=== PATIENT | female | born 1980 | race Caucasian/White ===

== ENCOUNTER → 2021-05-06 12:43 | Outpatient (CLI) | payer OTHER, SELFPAY ==
--- NOTE | 2021-05-06 12:44 | DI.US.S_ITS ---
PROCEDURE: US PELVIC COMPLETE INDICATIONS: VAGINAL MASS TECHNIQUE: Real-time scanning was performed of the pelvic organs, with image documentation. Additional endovaginal scanning was necessary due to incomplete visualization of the adnexal and endometrial structures by transabdominal scanning. COMPARISON: None. FINDINGS: Uterus: Uterus is anteverted and normal in size at 11.3 x 5.1 x 6.3 cm. The myometrium is heterogeneous. The endometrium measures 22.6 mm combined thickness. Anterior intramural fibroid measuring 4.4 x 3.6 x 4.0 cm. Cystic mass seen within the vagina measuring 1.7 x 1.8 x 1.2 cm. Ovaries: The right ovary is surgically absent. Left ovary measures 3.5 x 2.0 x 2.5 cm. Other: No pathologic free abdominal or pelvic fluid. IMPRESSION: 1. Vaginal cyst measuring up to 1.8 cm. 2. Thickened endometrial complex measuring 22.6 mm. Short-term follow-up pelvic ultrasound in 6 weeks is recommended to assess for interval thinning. 3. 4.4 cm intramural fibroid. We strive to produce accurate, complete, and clear reports of imaging services. To assist us in improving patient care, this report was composed using standard report templates and voice recognition software. Therefore, it may contain abnormal punctuation, insertions and/or omissions. Occasional wrong-word or sound-alike substitutions may occur. Though we review the report and make efforts to correct it, we do recommend that the report be read carefully in proper context to recognize any text inaccuracies. Dictated by: Josse GUEVARA Interpreted: Sugey Contreras MD on 05/06/2021 at 13:18 Transcribed by: ALEXANDRA on 05/06/2021 at 13:21 Approved by: Sugey Contreras M.D. on 05/06/2021 at 17:48
== END ==
PROVIDERS: PCP Registered Nurse Women's Health Care, Ambulatory; Referring Provider Student in an Organized Health Care Education/Training Program; Visit Provider Student in an Organized Health Care Education/Training Program
DX: N89.8 Other specified noninflammatory disorders of vagina (principal); R93.89 Abnormal findings on diagnostic imaging of other specified body structures; D25.1 Intramural leiomyoma of uterus
CPT/HCPCS: 76830; 76856

== ENCOUNTER 2022-03-18 12:50 | Emergency (ER) | payer OTHER, SELFPAY ==
[2022-03-18 13:04] VITALS: BP 166/80; PULSE 76; RESP 18; TEMP 36.5; O2SAT 98; BMI 41.8
[2022-03-18 14:23] LABS: Add Manual Diff / Slide Review NO; Basophils Absolute Auto 100 /uL (0-100); Basophils Percent Auto 0.7 % (0-2); Eosinophils Absolute Auto 300 /uL (0-450); Eosinophils Percent Auto 3.1 % (2-4); Hematocrit 41.6 % (36-46); Hemoglobin 14.3 g/dL (12.0-16.0); Lymphocytes Absolute Auto 2000 /uL (1100-4500); Lymphocytes Percent Auto 20.4 % (25-40); Mean Corpuscular HGB Conc 34.3 % (30-36); Mean Corpuscular Hemoglobin 28.5 PG (26-34); Mean Corpuscular Volume 83.1 fL (80-100); Monocytes Absolute Auto 500 /uL (0-900); Monocytes Percent Auto 4.9 % (3-14); Neutrophils Absolute Auto 6800 /uL (1500-7000); Neutrophils Percent Auto 70.9 % (50-75); Platelet Count 255 X10^3/uL (150-400); Red Blood Cell Count 5.01 X10^6/uL (4.0-5.2); Red Cell Distribution Width 13.8 % (11.6-14.8); White Blood Cell Count 9.6 X10^3/uL (4.5-11.0)
[2022-03-18 14:36] LABS: Blood Urea Nitrogen 12 mg/dL (7-17); Calcium 9.1 mg/dL (8.4-10.2); Carbon Dioxide 22 mmol/L (22-32); Chloride 106 mmol/L (98-107); Estimated Glomerular Filt Rate > 60 mL/min (>60); Glucose 95 mg/dL (70-100); HEMOLYSIS 29 (0-50); Potassium 4.3 mmol/L (3.4-5.1); Sodium 139 mmol/L (137-145)
[2022-03-18 16:05] VITALS: BP 139/83; PULSE 73; RESP 19; O2SAT 97
[2022-03-18 16:30] VITALS: PULSE 73; RESP 18; O2SAT 98
[2022-03-18 16:31] VITALS: BP 141/80; PULSE 75; O2SAT 97
--- NOTE | 2022-03-18 16:32 | ED_ITS ---
HPI - General Adult General Chief complaint: Hypertension Stated complaint: BP 180/108 dizziness t-1 Time Seen by Provider: 03/18/22 16:22 Source: patient Mode of arrival: Ambulatory History of Present Illness HPI narrative: Patient is a 41-year-old female who stated that she woke up in the middle the night feeling very lightheaded. It was not a room spinning sensation but more of just an unsteadiness. She had no chest pain. No shortness of breath. She does have some sinus congestion. Her symptoms have greatly improved if not res olved at the time of my exam. She took her blood pressure and it was elevated. She has been off of her blood pressure medicines for the past couple days. She did call to have a refill but does not have those yet. No lower extremity swelling. No tingling in the upper extremities. Related Data Home Medications Medication Instructions Recorded Confirmed VITAMIN D (Vitamin D3) 1,000 unit PO QDAY ##0 01/22/11 10/28/21 loratadine 10 mg tablet (Claritin) 10 mg PO QDAYP PRN ##0 10/03/16 10/28/21 multivitamin PO 06/08/21 10/28/21 Allergies Allergy/AdvReac Type Severity Reaction Status Date / Time No Known Drug Allergies Allergy Verified 03/18/22 13:04 Review of Systems Constitutional Constitutional: Reports system reviewed and no additional complaints, except as documented ENT Ears, Nose, Mouth, and Throat: Reports system reviewed and no additional comp laints, except as documented Cardiovascular Cardiovascular: Reports system reviewed and no additional complaints, except as documented Respiratory Respiratory: Reports system reviewed and no additional complaints, except as documented Integumentary/Breasts Skin/Breast: Reports system reviewed and no additional complaints, except as documented Neurologic Neurologic: Reports system reviewed and no additional complaints, except as documented Hematologic/Lymphatic On Anticoagulants: No Patient History Medical History HTN (hypertension) Vaginal delivery Wears contact lenses Surgical History Anesthesia Tubal (~1999) Social History Smoking Status: Former smoker Smoking Status: Former smoker alcohol intake frequency: holidays/special occasions only Substance Use Type: marijuana Exam Initial Vital Signs Initial Vital Signs: Vital Signs Temperature 97.7 F 03/18/22 13:04 Pulse Rate 76 03/18/22 13:04 Respiratory Rate 18 03/18/22 13:04 Blood Pressure 166/80 H 03/18/22 13:04 Pulse Oximetry 98 03/18/22 13:04 Oxygen Delivery Method 03/18/22 13:04 Const General: cooperative and healthy appearing HENMT Ears: TM's normal bilaterally Resp Effort & Inspection: normal respiratory effort Auscultation: clear to auscultation bilaterally Cardio Rate: regular rate Rhythm: regular rhythm Neuro General: patient alert, patient awake, patient oriented x3 and moves all extremities Speech: speech normal Gait: normal gait Extrem General: normal to inspection and capillary refill normal Course Orders Ordered: ED Orders 03/18/22 14:12 Basic Metabolic Panel Stat Complete Blood Count AUTO DIFF Stat 03/18/22 14:19 EKG-12 Lead Stat Vital Signs Vital signs: Vital Signs - 8 hr 03/18/22 13:04 03/18/22 16:05 03/18/22 16:05 Temperature 97.7 F Pulse Rate 76 73 Respiratory Rate 18 19 Blood Pressure 166/80 H 139/83 Pulse Oximetry 98 97 Oxygen Delivery Method Room Air Room Air 03/18/22 16:30 03/18/22 16:31 03/18/22 16:31 Temperature Pulse Rate 73 75 Respiratory Rate 18 Blood Pressure 141/80 H Pulse Oximetry 98 97 Oxygen Delivery Method Room Air Medical Decision Making Lab Data Result diagrams: 03/18/22 14:12 03/18/22 14:12 Labs: Lab Results 03/18/22 03/18/22 Range/Units 14:12 14:12 WBC 9.6 (4.5-11.0) X10^3/uL RBC 5.01 (4.0-5.2) X10^6/uL Hgb 14.3 (12.0-16.0) g/dL Hct 41.6 (36-46) % MCV 83.1 (80-100) fL MCH 28.5 (26-34) PG MCHC 34.3 (30-36) % RDW 13.8 (11.6-14.8) % Plt Count 255 (150-400) X10^3/uL Neut % (Auto) 70.9 (50-75) % Lymph % (Auto) 20.4 L (25-40) % [place] % (Auto) 4.9 (3-14) % Eos % (Auto) 3.1 (2-4) % Baso % (Auto) 0.7 (0-2) % Neut # (Auto) 6800 (0502-0846) /uL Lymph # (Auto) 2000 (3823-4057) /uL [place] # (Auto) 500 (0-900) /uL Eos # (Auto) 300 (0-450) /uL Baso # (Auto) 100 (0-100) /uL Sodium 139 (137-145) mmol/L Potassium 4.3 (3.4-5.1) mmol/L Chloride 106 (98-107) mmol/L Carbon Dioxide 22 (22-32) mmol/L BUN 12 (7-17) mg/dL Creatinine 0.60 (0.52-1.04) mg/dL Estimated GFR > 60 (>60) mL/min BUN/Creatinine Ratio 20.0 (6-22) Glucose 95 (70-100) mg/dL Calcium 9.1 (8.4-10.2) mg/dL Urine Dip Bedside Urine Glucose Negative Bedside Urine Bilirubin - Negative Bedside Urine Ketone - Negative Urine Specific [place] 1.02 Bedside Urine Occult Blood - Negative Bedside Urine Protein - Negative Bedside Urine Urobilinogen - Negative Bedside Urine Nitrite - Negative Bedside Urine Leukocytes - Negative Esterase Point of care testing: Urine Dip Bedside Urine Glucose Negative Bedside Urine Bilirubin - Negative Bedside Urine Ketone - Negative Urine Specific [place] 1.02 Bedside Urine Occult Blood - Negative Bedside Urine Protein - Negative Bedside Urine Urobilinogen - Negative Bedside Urine Nitrite - Negative Bedside Urine Leukocytes - Negative Esterase MDM Narrative Medical decision making narrative: Blood pressure improved without specific intervention. Labs are unremarkable. Low suspicion for CVA/TIA. Her HEENT exam is unremarkable as well. Her symptoms very well could have been because of the elevation in her blood pressure. She was instructed that she should take her blood pressure me dications as directed and contact her primary doctor for follow-up. We also discussed starting N [place] histamine/decongestant. She was given return precautions. She expressed understanding and agreement. Discharge Plan Departure Patient Disposition: Home Clinical Impression: HTN (hypertension) Instructions: DI for High Blood Pressure Activity Restrictions/Additional Instructions: I recommend that you start taking your blood pressure medications as directed. Also recommend that he start on antihistamine such as Claritin. You can take this on a daily basis. Contact your primary doctor for follow-up. Return to the emergency department for any new or worsening symptoms. Prescriptions: No Action VITAMIN D (Vitamin D3) 1,000 unit PO QDAY Qty: 0 loratadine [Claritin] 10 MG tablet 10 mg PO QDAYP PRNQty: 0 multivitamin PO Referrals: Sejal Ponce ARNP [Primary Care Provider] - Visit Report Forms: Patient Portal/API
== END 2022-03-18 16:40 | disposition home or self-care (01) ==
PROVIDERS: Emergency Provider Emergency Medicine; PCP Registered Nurse Women's Health Care, Ambulatory
DX: I10 Essential (primary) hypertension (principal); R07.9 Chest pain, unspecified
CPT/HCPCS: 36415; 80048; 81003; 85025; 93005; 99282; 99284

== ENCOUNTER → 2023-01-03 09:53 | Outpatient (CLI) | payer OTHER, SELFPAY ==
[2023-01-03 10:54] LABS: Hemoglobin A1C% w Est Avg Glu 4.9 % (4.0-6.0)
[2023-01-03 11:08] LABS: Alanine Aminotransferase 35 IU/L (<35); Albumin 3.9 g/dL (3.5-5.0); Albumin Globulin Ratio 1.6 (1.0-2.8); Alkaline Phosphatase 60 U/L (38-126); Aspartate Aminotransferase 23 IU/L (14-36); BUN Creatinine Ratio 22.4 (6-22); Bilirubin Total 0.6 mg/dL (0.2-1.3); Blood Urea Nitrogen 15 mg/dL (7-17); Calcium 8.9 mg/dL (8.4-10.2); Carbon Dioxide 21 mmol/L (22-32); Chloride 108 mmol/L (98-107); Cholesterol 210 mg/dL (140-199); Estimated Glomerular Filt Rate > 60 mL/min (>60); Globulin 2.5 g/dL (1.7-4.1); Glucose 102 mg/dL (70-100); HDL Cholesterol 39 mg/dL (40-60); HEMOLYSIS < 15 (0-50); LDL Cholesterol Calculated 134 mg/dL (<100); Potassium 4.1 mmol/L (3.4-5.1); Sodium 137 mmol/L (137-145); Total Protein 6.4 g/dL (6.3-8.2); Triglycerides 187 mg/dL (35-150)
[2023-01-03 11:26] LABS: Vitamin D 25 Hydroxy (D3) 44.8 ng/mL (30.0-100.0)
[2023-01-03 11:39] LABS: TSH w/ Reflex to FT4 2.67 uIU/mL (0.47-4.68)
== END ==
PROVIDERS: PCP Family Medicine; Referring Provider Family Medicine; Visit Provider Family Medicine
DX: E55.9 Vitamin D deficiency, unspecified (principal); E66.01 Morbid (severe) obesity due to excess calories; E78.5 Hyperlipidemia, unspecified; I10 Essential (primary) hypertension
CPT/HCPCS: 36415; 80053; 80061; 82306; 83036; 84443

== ENCOUNTER → 2023-11-03 15:44 | Outpatient (CLI) | payer OTHER, SELFPAY ==
[2023-11-03 17:40] LABS: Influenza A - CEPHEID Flu A NEGATIVE (NEGATIVE); Influenza B - CEPHEID Flu B NEGATIVE (NEGATIVE)
[2023-11-03 17:42] LABS: COVID-19 CEPHEID 4-PLEX PCR Negative (Negative)
== END ==
PROVIDERS: PCP Family Medicine; Visit Provider Family Medicine
DX: I10 Essential (primary) hypertension (principal); R09.81 Nasal congestion
CPT/HCPCS: 0240U

== ENCOUNTER → 2023-11-27 09:00 | Outpatient (CLI) | payer OTHER, SELFPAY ==
[2023-11-27 11:05] LABS: Alanine Aminotransferase 24 IU/L (<35); Albumin 4.1 g/dL (3.5-5.0); Albumin Globulin Ratio 1.8 (1.0-2.8); Alkaline Phosphatase 56 U/L (38-126); Aspartate Aminotransferase 22 IU/L (14-36); BUN Creatinine Ratio 15.3 (6-22); Bilirubin Total 0.9 mg/dL (0.2-1.3); Blood Urea Nitrogen 11 mg/dL (7-17); Calcium 9.2 mg/dL (8.4-10.2); Carbon Dioxide 24 mmol/L (22-32); Chloride 108 mmol/L (98-107); Cholesterol 175 mg/dL (140-199); Estimated Glomerular Filt Rate > 60 mL/min (>60); Globulin 2.3 g/dL (1.7-4.1); Glucose 104 mg/dL (70-100); HDL Cholesterol 40 mg/dL (40-60); HEMOLYSIS < 15 (0-50); LDL Cholesterol Calculated 91 mg/dL (<100); Potassium 4.6 mmol/L (3.4-5.1); Sodium 138 mmol/L (137-145); Total Protein 6.4 g/dL (6.3-8.2); Triglycerides 220 mg/dL (35-150)
== END ==
PROVIDERS: PCP Family Medicine; Referring Provider Family Medicine; Visit Provider Family Medicine
DX: I10 Essential (primary) hypertension (principal); R09.81 Nasal congestion
CPT/HCPCS: 36415; 80053; 80061; 86140

== ENCOUNTER → 2024-11-29 08:40 | Outpatient (CLI) | payer OTHER, SELFPAY ==
[2024-11-29 08:57] LABS: Add Manual Diff / Slide Review NO; Hematocrit 38.4 % (36-46); Hemoglobin 12.8 g/dL (12.0-16.0); Lymphocytes Absolute Auto 1800 /uL (1100-4500); Mean Corpuscular HGB Conc 33.3 % (30-36); Mean Corpuscular Hemoglobin 25.9 PG (26-34); Mean Corpuscular Volume 77.8 fL (80-100); Platelet Count 263 X10^3/uL (150-400)
[2024-11-29 09:05] LABS: Hemoglobin A1C% w Est Avg Glu 5.4 % (4.0-6.0)
[2024-11-29 09:14] LABS: Alanine Aminotransferase 27 IU/L (<35); Albumin 4.4 g/dL (3.5-5.0); Albumin Globulin Ratio 1.6 (1.0-2.8); Alkaline Phosphatase 57 U/L (38-126); Blood Urea Nitrogen 15 mg/dL (7-17); Calcium 9.3 mg/dL (8.4-10.2); Carbon Dioxide 20 mmol/L (22-32); Chloride 107 mmol/L (98-107); Cholesterol 252 mg/dL (140-199); Estimated Glomerular Filt Rate > 60 mL/min (>60); Globulin 2.8 g/dL (1.7-4.1); Glucose 109 mg/dL (70-99); HDL Cholesterol 43 mg/dL (40-60); HEMOLYSIS < 15 (0-50); Potassium 4.3 mmol/L (3.4-5.1); Sodium 136 mmol/L (137-145); Total Protein 7.2 g/dL (6.3-8.2); Triglycerides 275 mg/dL (35-150)
[2024-11-30 07:40] LABS: CRP, High Sensitivity 1.23 mg/L (0.00-3.00)
== END ==
PROVIDERS: PCP Family Medicine; Referring Provider Family Medicine; Visit Provider Family Medicine
DX: Z01.419 Encounter for gynecological examination (general) (routine) without abnormal findings (principal); E66.01 Morbid (severe) obesity due to excess calories; I10 Essential (primary) hypertension; N95.1 Menopausal and female climacteric states; E78.5 Hyperlipidemia, unspecified; E55.9 Vitamin D deficiency, unspecified; E88.810 Metabolic syndrome; E66.9 Obesity, unspecified; R73.9 Hyperglycemia, unspecified
CPT/HCPCS: 36415; 80053; 80061; 83036; 85025; 86140

== ENCOUNTER 2024-11-30 10:44 | Emergency (ER) | payer OTHER, SELFPAY ==
[2024-11-30 10:47] VITALS: BP 138/91; PULSE 85; RESP 20; TEMP 36.6; O2SAT 98; BMI 39.4
--- NOTE | 2024-11-30 11:10 | ED_ITS ---
HPI - Recheck/Abnormal Lab/Rx <Candie Torres PA-C - Last Filed: 11/30/24 13:08> General Chief Complaint: Recheck/Abnormal Lab/Rx Stated Complaint: Blood pressure out of wack/headache/feels off Time Seen by Provider: 11/30/24 10:49 Source: patient Mode of arrival: Ambulatory History of Present Illness HPI narrative: Ms. Alfredo is a pleasant 44-year-old female with a past medical history of hypertension, obesity, perimenopausal, Eustachian salpingitis who presents to the emergency department for elevated blood pressure, not feeling well x1 month. Patient has seen her primary care doctor for these symptoms and had labs drawn yesterday. Patient was having some ear pain/headache which is actually improved since following her PCP's recommendations. States that she just feels ?off? which she describes as feeling fatigued and occasionally hot and cold. She denies chest pain, shortness of breath, visual disturbance, pain, dizziness or lightheadedness. Related Data Home Medications ?Medication ?Instructions ?Recorded ?Confirmed loratadine 10 mg tablet (Claritin) 10 mg PO QDAYP PRN ##0 10/03/16 11/27/24 cholecalciferol (vitamin D3) PO 11/03/23 11/27/24 multivitamin 1 tab PO DAILY 11/03/23 0810/16 Previous Rx's ?Medication ?Instructions ?Recorded lisinopril 20 mg tablet 20 mg PO DAILY #90 tabs 11/23 12/15 Allergies Allergy/AdvReac Type Severity Reaction Status Date / Time No Known Drug Allergies Allergy Verified 11/30/24 10:47 Review of Systems <Candie Torres PA-C - Last Filed: 11/30/24 13:08> Review of Systems ROS Unobtainable: All systems reviewed & are unremarkable except as noted in HPI and below Patient History <Candie Torres PA-C - Last Filed: 11/30/24 13:08> Medical History Serous otitis media Pickwickian syndrome Vaginal cyst Vaginal delivery Wears contact lenses Surgical History Anesthesia Tubal (~1999) Social History Smoking Status: Current some day smoker Tobacco: How many years used: 10 quit status: not considering quitting alcohol intake: current (~3 drinks twice monthly ) substance use type: does not use Smoking Status: Current some day smoker alcohol intake frequency: holidays/special occasions only Exam <Candie Torres PA-C - Last Filed: 11/30/24 13:08> Narrative Exam Narrative: GENERAL: 44 year old patient appears stated age. Overweight patient, in no acute distress. HEAD: Atraumatic. Normocephalic. EYES: PERRL. Extraocular motions intact. No scleral icterus. No injection or drainage. NECK: Trachea midline. Cervical ROM intact. CARDIOVASCULAR: Regular rate and rhythm. RESPIRATORY: ?Nonlabored respirations. ?Speaking in clear, full sentences. ?Clear to auscultation. Breath sounds equal bilaterally. No wheezes, rales, or rhonchi. ? EXTREMITIES: No LE edema. NEURO: AOx3. ?Clear speech. ?Moves all 4 extremities appropriately. Steady gate. SKIN: No rash or erythema of visible areas Initial Vital Signs Initial Vital Signs: Vital Signs Temperature 98 F 11/30/24 10:47 Pulse Rate 85 11/30/24 10:47 Respiratory Rate 20 11/30/24 10:47 Blood Pressure 138/91 H 11/30/24 10:47 Pulse Oximetry 98 11/30/24 10:47 Oxygen Delivery Method Room Air 11/30/24 10:47 <Dedra Snyder MD - Last Filed: 11/30/24 16:09> Initial Vital Signs Initial Vital Signs: Vital Signs Temperature 98 F 11/30/24 10:47 Pulse Rate 85 11/30/24 10:47 Respiratory Rate 20 11/30/24 10:47 Blood Pressure 138/91 H 11/30/24 10:47 Pulse Oximetry 98 11/30/24 10:47 Oxygen Delivery Method Room Air 11/30/24 10:47 Course <Candie Torres PA-C - Last Filed: 11/30/24 13:08> Orders Ordered: ED Orders 11/30/24 11:21 XR chest 2V Stat EKG-12 Lead Stat 11/30/24 11:52 TSH [Thyroid Stimulating Hormone] Stat Vital Signs Vital signs: Vital Signs - 8 hr 11/30/24 10:47 11/30/24 12:33 Temperature 98 F 97.7 F Pulse Rate 85 72 Respiratory Rate 20 16 Blood Pressure 138/91 H 114/80 Pulse Oximetry 98 98 Oxygen Delivery Method Room Air Room Air <Dedra Snyder MD - Last Filed: 11/30/24 16:09> Orders Ordered: ED Orders 11/30/24 11:21 XR chest 2V Stat EKG-12 Lead Stat 11/30/24 11:52 TSH [Thyroid Stimulating Hormone] Stat Vital Signs Vital signs: Vital Signs - 8 hr 11/30/24 10:47 11/30/24 12:33 Temperature 98 F 97.7 F Pulse Rate 85 72 Respiratory Rate 20 16 Blood Pressure 138/91 H 114/80 Pulse Oximetry 98 98 Oxygen Delivery Method Room Air Room Air MDM - Recheck/Abnormal Lab/Rx <Candie Torres PA-C - Last Filed: 11/30/24 13:08> Medical Records Attestation: I reviewed the patient's medical records. Lab Data Labs: Lab Results 11/30/24 Range/Units 11:52 TSH 0.050 L (0.47-4.68) uIU/mL MDM Narrative Medical decision making narrative: 44-year-old female with a past medical history of hypertension, obesity, perimenopausal, Eustachian salpingitis who presents to the emergency department for elevated blood pressure, not feeling well x1 month. Differential diagnosis includes but is not limited to perimenopause, electrolyte disturbance, anemia, iron deficiency, vitamin-D deficiency, hypertension, etc. On exam patient is in no acute distress, nontoxic-appearing, all vital signs within normal limits including a blood pressure of 138/91. She has not experiencing any chest pain, shortness of breath, lightheadedness, dizziness or visual disturbance. Reviewed labs from yesterday which reveal normal electrolytes, good renal and liver function, she does have significantly elevated triglycerides and cholesterol and a normal A1c which I discussed with her. After discussion with the attending physician Dr. Snyder, we will check baseline TSH chest x-ray and EKG. EKG reveals normal sinus rhythm with a ventricular rate of 76 beats per minute, QTC of 427, no axis deviation and no ST segment elevations. Advised the patient to take her lisinopril as instructed by her doctor. States that she was taking 20 mg in the morning and sometimes 20 mg at night if her blood pressure was elevated but I recommended consistently taking 20 mg in the morning and 10 mg at night as recommended by her PCP. She would likely benefit from management of her cholesterol, potentially checking iron vitamin-D levels, etc. discussed ED return precautions. Chest x-ray normal. TSH pending however informed patient I will call her of the result is significantly abnormal. Recommended supportive care, follow up with PCP and ED return precautions. She verbalized understanding of all information is happy with the plan. She is stable for discharge home. 1305: Called and spoke with the patient about her low TSH level, 0.050. Informed patient what this means, that she will need more laboratory studies such as T3, T4. Discussed hyperthyroidism in brief. Patient states she has a PCP appointment on Monday we will talk with a doctor about this. All questions answered. <Dedra Snyder MD - Last Filed: 11/30/24 16:09> Lab Data Labs: Lab Results 11/30/24 Range/Units 11:52 TSH 0.050 L (0.47-4.68) uIU/mL Discharge Plan Departure Patient Disposition: Home Clinical Impression: Low thyroid stimulating hormone (TSH) level Hypertension Qualifiers: Hypertension type: unspecified Qualified Code(s): I10 - Essential (primary) hypertension Fatigue Qualifiers: Fatigue type: unspecified Qualified Code(s): R53.83 - Other fatigue Instructions: DI for High Blood Pressure Activity Restrictions/Additional Instructions: Dear Juni, Thank you for coming to the emergency department. Today we checked a thyroid stimulating hormone, EKG and chest x-ray were your concerns of elevated blood pressure and feeling fatigued and off. I also reviewed your lab work that was done yesterday. Your lab work revealed normal electrolytes, good kidney and liver function, and a normal A1c. It did however reveal elevated triglycerides and cholesterol which you will need to talk with your primary care doctor about. At this time your blood pressure seems to be within good range, I do recommend that you take your lisinopril as prescribed by your doctor. Please rest, hydrate, consume a low-sodium diet for blood pressure (DASH diet), and follow up with the primary care doctor for further management. Please return to the emergency department if you develop chest pain, shortness of breath, visual disturbance, dizziness, fevers or any concerns. Please follow up with your primary care doctor within the next 2-3 days for ER follow-up. (If you do not have a PCP you can call [phone]. ?to schedule an appointment with an [facility] Primary Care Provider) IF YOU DEVELOP ANY NEW OR WORSENING SYMPTOMS, RETURN TO THE ER! Please read the attached instructions, they highlight more specific treatments and interventions for you at home. Thank you for letting me participate in your care, Candie Torres PA-C Prescriptions: No Action loratadine [Claritin] 10 MG tablet 10 mg PO QDAYP PRNQty: 0 lisinopril 20 mg tablet 20 mg PO DAILY Qty: 90 2RF multivitamin Tablet 1 tab PO DAILY cholecalciferol (vitamin D3) PO Referrals: Janey Valles DO [Primary Care Provider, Medical] Stand Alone Forms: Patient Portal/API ED Sign-out <Dedra Snyder MD - Last Filed: 11/30/24 16:09> Cosign ED Attending Coslettyature Attestation: I was immediately available in the department for consultation throughout this patient's visit. Dedra Snyder MD
--- NOTE | 2024-11-30 11:21 | DI.RAD.S_ITS ---
PROCEDURE: XR CHEST 2V INDICATIONS: htn TECHNIQUE: 2 views of the chest were acquired. COMPARISON: None. FINDINGS: Surgical changes and devices: None. Lungs and pleura: Lungs are clear. No pleural effusions or pneumothorax. Mediastinum: Mediastinal contours are normal. Heart size is normal. Bones and chest wall: No suspicious bony abnormalities. Soft tissues appear unremarkable. IMPRESSION: No acute cardiopulmonary abnormality is seen. Dictated by: Andre Garrison M.D. on 11/30/2024 at 11:05 Approved by: Andre Garrison M.D. on 11/30/2024 at 11:06
--- NOTE | 2024-11-30 11:29 | EKG_ITS ---
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
[2024-11-30 12:33] VITALS: BP 114/80; PULSE 72; RESP 16; TEMP 36.5; O2SAT 98
[2024-11-30 12:56] LABS: Thyroid Stimulating Hormone 0.050 uIU/mL (0.47-4.68)
== END 2024-11-30 12:33 | disposition home or self-care (01) ==
PROVIDERS: Emergency Provider Physician Assistant; PCP Family Medicine
DX: I10 Essential (primary) hypertension (principal); R53.83 Other fatigue; E03.9 Hypothyroidism, unspecified
CPT/HCPCS: 36415; 71046; 84443; 93005; 99283; 99284

== ENCOUNTER → 2025-01-07 14:24 | Outpatient (CLI) | payer OTHER, SELFPAY ==
[2025-01-07 15:45] LABS: Free T3, Triiodothyronine Free 3.64 pg/mL (2.77-5.27)
[2025-01-07 15:58] LABS: TSH w/ Reflex to FT4 2.46 uIU/mL (0.47-4.68)
== END ==
PROVIDERS: PCP Family Medicine; Referring Provider Family Medicine; Visit Provider Family Medicine
DX: E03.9 Hypothyroidism, unspecified (principal)
CPT/HCPCS: 36415; 84443; 84481

== ENCOUNTER → 2025-01-16 12:37 | Outpatient (CLI) | payer OTHER, SELFPAY ==
[2025-01-16 14:27] LABS: Free T3, Triiodothyronine Free 3.38 pg/mL (2.77-5.27)
[2025-01-16 14:41] LABS: TSH w/ Reflex to FT4 2.29 uIU/mL (0.47-4.68)
== END ==
PROVIDERS: PCP Family Medicine; Referring Provider Family Medicine; Visit Provider Family Medicine
DX: E05.90 Thyrotoxicosis, unspecified without thyrotoxic crisis or storm (principal)
CPT/HCPCS: 36415; 84443; 84481

== ENCOUNTER → 2025-02-13 14:09 | Outpatient (CLI) | payer OTHER, SELFPAY ==
[2025-02-13 16:00] LABS: TSH w/ Reflex to FT4 2.05 uIU/mL (0.47-4.68)
[2025-02-13 16:03] LABS: Ferritin 5 ng/mL (6-137)
[2025-02-13 16:27] LABS: Follicle Stimulating Hormone 4.75 mIU/mL; Progesterone, Total 2.22 ng/mL
[2025-02-13 16:43] LABS: Estradiol, Total 71.3 pg/mL
== END ==
PROVIDERS: PCP Family Medicine; Referring Provider Family Medicine; Visit Provider Family Medicine
DX: E03.9 Hypothyroidism, unspecified (principal); R53.83 Other fatigue; N95.1 Menopausal and female climacteric states; R53.82 Chronic fatigue, unspecified
CPT/HCPCS: 36415; 82670; 82728; 83001; 84144; 84403; 84443; 86376; 86800

== ENCOUNTER 2025-03-04 08:53 | Emergency (ER) | payer OTHER, SELFPAY ==
[2025-03-04 09:07] VITALS: BP 132/86; PULSE 79; RESP 14; TEMP 36.3; O2SAT 98; BMI 37.6
--- NOTE | 2025-03-04 09:11 | EKG_ITS ---
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
--- NOTE | 2025-03-04 09:11 | DI.RAD.S_ITS ---
PROCEDURE: XR CHEST 1V INDICATIONS: Chest Pain TECHNIQUE: One view of the chest was acquired. COMPARISON: [facility], CR, XR CHEST 2V, 11/30/2024, 11:24. FINDINGS: Surgical changes and devices: None. Lungs and pleura: Lungs are clear. No pleural effusions or pneumothorax. Mediastinum: Mediastinal contours appear normal. Heart size is normal. Bones and chest wall: No suspicious bony lesions. Overlying soft tissues appear unremarkable. IMPRESSION: No acute cardiopulmonary pathology. Dictated by: Tyson House M.D. on 03/04/2025 at 9:38 Approved by: Tyson House M.D. on 03/04/2025 at 9:38
[2025-03-04 10:30] LABS: Add Manual Diff / Slide Review NO; Hematocrit 38.1 % (36-46); Hemoglobin 12.4 g/dL (12.0-16.0); Lymphocytes Absolute Auto 1600 /uL (1100-4500); Mean Corpuscular HGB Conc 32.7 % (30-36); Mean Corpuscular Hemoglobin 25.5 PG (26-34); Mean Corpuscular Volume 77.9 fL (80-100); Platelet Count 250 X10^3/uL (150-400)
[2025-03-04 10:37] LABS: INR 0.9 (0.9-1.3); Prothrombin Time 10.1 SECONDS (9.4-12.5)
[2025-03-04 10:40] LABS: PTT Partial Thromboplastin Tim 28 SECONDS (25.1-36.5)
[2025-03-04 10:41] LABS: Alanine Aminotransferase 26 IU/L (<35); Albumin 4.4 g/dL (3.5-5.0); Albumin Globulin Ratio 1.6 (1.0-2.8); Alkaline Phosphatase 55 U/L (38-126); Blood Urea Nitrogen 11 mg/dL (7-17); Calcium 9.1 mg/dL (8.4-10.2); Carbon Dioxide 22 mmol/L (22-32); Chloride 107 mmol/L (98-107); Creatine Kinase 55 U/L (30-135); Estimated Glomerular Filt Rate > 60 mL/min (>60); Globulin 2.8 g/dL (1.7-4.1); Glucose 99 mg/dL (70-99); HEMOLYSIS 18 (0-50); Lipase 54 U/L (23-300); Magnesium 1.7 mg/dL (1.6-2.3); Potassium 4.4 mmol/L (3.4-5.1); Sodium 137 mmol/L (137-145); Total Protein 7.2 g/dL (6.3-8.2)
[2025-03-04 10:53] LABS: NT-proBNP (BNP-Adult 18+) 64 pg/mL (<125); Troponin I < 0.012 ng/mL (0.01-0.034)
[2025-03-04 11:27] VITALS: BP 121/82; PULSE 65; RESP 18; TEMP 37.1; O2SAT 98
--- NOTE | 2025-03-04 12:24 | ED_ITS ---
<Statement entered by Zeke June MD - 03/04/25 16:09> I was personally available for consultation in the Department at that time this patient was seen HPI - Headache General Chief Complaint: Headache Stated Complaint: High blood pressure 2 days Time Seen by Provider: 03/04/25 11:23 Mode of arrival: Ambulatory History of Present Illness HPI Narrative: 44-year-old female with past medical history hypertension, thyroid derangements, iron deficiency presents to the ED with a few days of increased fatigue, lightheadedness, elevated blood pressure readings. Patient is scheduled to get a infusion for the iron deficiency in the next few days. 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 Patient denies fever, chills, chest pain, shortness of breath, nausea, vomiting, abdominal pain, dysuria, syncope. Patient states that she takes her blood pressure readings with a home cuff. Related Data Home Medications ?Medication ?Instructions ?Recorded ?Confirmed loratadine 10 mg tablet (Claritin) 10 mg PO QDAYP PRN ##0 10/03/16 02/17/25 cholecalciferol (vitamin D3) PO 11/03/23 02/17/25 multivitamin 1 tab PO DAILY 11/03/2301/23 Progesterone cream topical 01/23/25 02/17/25 Previous Rx's ?Medication ?Instructions ?Recorded lisinopril 20 mg tablet 30 mg (1.5 x 20 mg) PO DAILY #135 12/03/24 tabs Allergies Allergy/AdvReac Type Severity Reaction Status Date / Time No Known Drug Allergies Allergy Verified 03/04/25 09:07 Review of Systems Review of Systems Narrative: high blood pressure reading Constitutional Constitutional: Denies chills, Reports fatigue, Denies fever(s), Denies frequent falls, Denies lethargy and Denies weakness Eyes Eyes: Denies change in vision, Denies eye discharge, Denies irritation and Denies loss of vision ENT Ears, Nose, Mouth, and Throat: Denies change in voice, Denies dizziness, Denies neck pain, Denies sore throat and Denies throat swelling Cardiovascular Cardiovascular: Denies chest pain, Denies irregular heart rhythm, Reports lightheadedness, Denies palpitations, Denies dyspnea, Denies dyspnea on exertion and Denies orthopnea Respiratory Respiratory: Denies cough, Denies dyspnea, Denies dyspnea on exertion and Denies wheezing Gastrointestinal Gastrointestinal: Denies abdominal pain, Denies change in bowel habits, Denies diarrhea, Denies nausea and Denies vomiting Musculoskeletal Musculoskeletal: Denies neck pain and Denies numbness Integumentary/Breasts Skin/Breast: Denies pruritus, Denies erythema, Denies rash and Denies wounds Neurologic Neurologic: Denies behavioral changes, Denies confusion, Denies dizziness, Denies frequent falls, Denies loss of vision, Denies numbness and Denies weakness Psychiatric Psychiatric: Denies anxiety, Denies behavioral changes, Denies confusion, Denies depression, Denies homicidal ideation and Denies suicidal ideation Endocrine Endocrine: Reports fatigue, Denies flushing and Denies palpitations Hematologic/Lymphatic Hematologic/Lymphatic: Denies easy bruising Allergic/Immunologic Allergic/Immunologic: Denies urticaria, Denies throat swelling and Denies wheezing Patient History Medical History Eustachian salpingitis Serous otitis media Pickwickian syndrome Vaginal cyst Vaginal delivery Wears contact lenses Surgical History Anesthesia Tubal (~1999) Social History Smoking Status: Current every day smoker Tobacco: How many years used: 10 quit status: not considering quitting alcohol intake: current (~3 drinks twice monthly ) substance use type: does not use Smoking Status: Current every day smoker alcohol intake frequency: holidays/special occasions only Exam Narrative Exam Narrative: Const General:?cooperative, healthy appearing and comfortable [facility] Head:?normal to inspection Ears:?hearing grossly normal bilaterally Nose:?external nose normal Face and sinus:?normal facial exam and sinuses nontender Mouth:?oral mucosae normal Throat:?posterior oropharynx normal Eyes General:?appearance normal, both eyes and all related structures Neck Neck:?normal visual inspection and no lymphadenopathy noted Resp Effort & Inspection:?normal respiratory effort Auscultation:?clear to auscultation bilaterally Cardio Rate:?regular rate Rhythm:?regular rhythm Neuro General:?patient alert, patient awake and patient oriented x3 Initial Vital Signs Initial Vital Signs: Vital Signs Temperature 97.4 F L 03/04/25 09:07 Pulse Rate 79 03/04/25 09:07 Respiratory Rate 14 03/04/25 09:07 Blood Pressure 132/86 03/04/25 09:07 Pulse Oximetry 98 03/04/25 09:07 Oxygen Delivery Method Room Air 03/04/25 09:07 Course Orders Ordered: ED Orders 03/04/25 09:11 XR chest 1V Stat EKG-12 Lead Stat 03/04/25 10:00 Complete Blood Count AUTO DIFF Stat Comprehensive Metabolic Panel Stat Lipase Stat Magnesium Stat NT-proBNP (BNP-Adult 18+) Stat PTT Partial Thromboplastin Carlos Stat Prothrombin Time INR Stat Troponin & CK Cardiac Panel Stat Vital Signs Vital signs: Vital Signs - 8 hr 03/04/25 09:07 03/04/25 11:27 03/04/25 12:30 Temperature 97.4 F L 98.7 F Pulse Rate 79 65 66 Respiratory Rate 14 18 16 Blood Pressure 132/86 121/82 138/86 Pulse Oximetry 98 98 100 Oxygen Delivery Method Room Air Room Air Room Air MDM - Headache Lab Data 03/04/25 10:00 03/04/25 10:00 Labs: Lab Results 03/04/25 Range/Units 10:00 WBC 7.0 (4.5-11.0) X10^3/uL RBC 4.88 (4.0-5.2) X10^6/uL Hgb 12.4 (12.0-16.0) g/dL Hct 38.1 (36-46) % MCV 77.9 L (80-100) fL MCH 25.5 L (26-34) PG MCHC 32.7 (30-36) % RDW 17.3 H (11.6-14.8) % Plt Count 250 (150-400) X10^3/uL Neut % (Auto) 67.0 (50-75) % Lymph % (Auto) 23.4 L (25-40) % [place] % (Auto) 5.6 (3-14) % Eos % (Auto) 3.1 (2-4) % Baso % (Auto) 0.9 (0-2) % Neut # (Auto) 4700 (5465-7651) /uL Lymph # (Auto) 1600 (7054-8230) /uL [place] # (Auto) 400 (0-900) /uL Eos # (Auto) 200 (0-450) /uL Baso # (Auto) 100 (0-100) /uL PT 10.1 (9.4-12.5) SECONDS INR 0.9 (0.9-1.3) APTT 28 (25.1-36.5) SECONDS Sodium 137 (137-145) mmol/L Potassium 4.4 (3.4-5.1) mmol/L Chloride 107 (98-107) mmol/L Carbon Dioxide 22 (22-32) mmol/L BUN 11 (7-17) mg/dL Creatinine 0.62 (0.52-1.04) mg/dL Estimated GFR > 60 (>60) mL/min BUN/Creatinine Ratio 17.7 (6-22) Glucose 99 (70-99) mg/dL Calcium 9.1 (8.4-10.2) mg/dL Magnesium 1.7 (1.6-2.3) mg/dL Total Bilirubin 0.3 (0.2-1.3) mg/dL AST 24 (14-36) IU/L ALT 26 (<35) IU/L Alkaline Phosphatase 55 (38-126) U/L Total Creatine Kinase 55 (30-135) U/L Troponin I < 0.012 (0.01-0.034) ng/mL NT-Pro-B Natriuret Pep 64 (<125) pg/mL Total Protein 7.2 (6.3-8.2) g/dL Albumin 4.4 (3.5-5.0) g/dL Globulin 2.8 (1.7-4.1) g/dL Albumin/Globulin Ratio 1.6 (1.0-2.8) Lipase 54 (23-300) U/L [facility] Narrative Medical decision making narrative: 44-year-old female with past medical history hypertension, thyroid derangements, iron deficiency presents to the ED with a few days of increased fatigue, lightheadedness, elevated blood pressure readings. In the ED, patient presents with a blood pressure of 121/82. Patient appears well, ACS workup was normal. EKG is normal sinus rhythm with no acute ST-T changes, no axis deviation. Chest x-ray without acute cardiopulmonary pathology. Labs, BNP, troponin within normal limits. Counseled patient on appropriate cuff size for accurate blood pressure readings. Counseled patient that thyroid abnormalities and iron deficiencies can cause lightheadedness. Recommend follow-up with PCP as soon as possible for further evaluation. ED return precautions discussed with patient. Patient verbalized understanding. Medical records reviewed: Yes Discharge Plan Departure Patient Disposition: Home Clinical Impression: Elevated blood pressure reading Instructions: DI for High Blood Pressure Activity Restrictions/Additional Instructions: You were evaluated in the emergency department today for an elevated blood pressure reading and some lightheadedness. Your EKG, chest x-ray and labs were normal. Your lightheadedness could be caused by your low iron levels for which you are scheduled to get an infusion very soon. Please follow-up with your PCP as soon as possible for further evaluation. Return to the ED if you have worsening symptoms, chest pain, shortness of breath. Prescriptions: No Action loratadine [Claritin] 10 MG tablet 10 mg PO QDAYP PRNQty: 0 lisinopril 20 mg tablet 30 mg PO DAILY Qty: 135 3RF multivitamin Tablet 1 tab PO DAILY cholecalciferol (vitamin D3) PO Progesterone cream topical Referrals: Janey Valles DO [Primary Care Provider, Medical] Stand Alone Forms: Patient Portal/API
[2025-03-04 12:30] VITALS: BP 138/86; PULSE 66; RESP 16; O2SAT 100
--- NOTE | 2025-03-04 12:32 | PC.NURSE ---
Reports headache mild at 2/10. States I always have sinus issues. Similar to previous headache.
== END 2025-03-04 12:37 | disposition home or self-care (01) ==
PROVIDERS: Emergency Medicine; Emergency Provider Student in an Organized Health Care Education/Training Program; PCP Family Medicine
DX: I10 Essential (primary) hypertension (principal); R51.9 Headache, unspecified
CPT/HCPCS: 36415; 71045; 80053; 82550; 83690; 83735; 83880; 84484; 85025; 85610; 85730; 93005; 99283; 99284

== ENCOUNTER → 2025-03-12 14:45 | Oncology outpatient (ONC) | payer OTHER, SELFPAY ==
[2025-03-12 15:03] VITALS: BP 121/86; PULSE 72; RESP 20; TEMP 36.8; O2SAT 97
[2025-03-12] MEDS: IRON SUCROSE 100 MG in SODIUM CHLORIDE 0.9% 100 ML 420 MG IV (15:16)
[2025-03-12 16:13] VITALS: BP 130/81; PULSE 65; RESP 16; TEMP 36.8; O2SAT 99
== END ==
LOC: ONC 14:45
PROVIDERS: PCP Family Medicine; Referring Provider Family Medicine; Visit Provider Family Medicine
DX: E61.1 Iron deficiency (principal)
CPT/HCPCS: 96365; J1756; J7050

== ENCOUNTER → 2025-04-04 10:14 | Outpatient (CLI) | payer OTHER, SELFPAY ==
[2025-04-04 11:35] LABS: Free T3, Triiodothyronine Free 4.20 pg/mL (2.77-5.27)
[2025-04-04 11:49] LABS: TSH w/ Reflex to FT4 2.00 uIU/mL (0.47-4.68)
[2025-04-04 11:53] LABS: Ferritin 51 ng/mL (6-137)
== END ==
PROVIDERS: PCP Family Medicine; Referring Provider Family Medicine; Visit Provider Family Medicine
DX: E06.3 Autoimmune thyroiditis (principal); E61.1 Iron deficiency; E03.9 Hypothyroidism, unspecified
CPT/HCPCS: 36415; 82728; 84443; 84481; 86376; 86800